=== PATIENT | male | born 2005 | race Caucasian/White ===

== ENCOUNTER 2025-05-17 04:35 | Emergency (ER) | payer BC, SELFPAY ==
[2025-05-17 06:20] LABS: #Basophils Less than 0.03 10x3/uL (0.0-0.2); #Eosinophils 0.07 10x3/uL (0.0-0.7); #Monocytes 1.81 10x3/uL (0.11-0.59); #Neutrophils 9.21 10x3/uL (1.40-6.50); %Basophils 0.2 % (0.0-1.0); %Eosinophils 0.6 % (0.0-10.0); %Lymphocytes 10.2 % (28.0-48.0); %Monocytes 14.6 % (0.0-4.0); %Neutrophils 74.1 % (31.0-61.0); Hematocrit 38.8 % (42.0-52.0); Hemoglobin 12.8 g/dL (14.0-18.0); Mean Corpuscular Hemoglobin 29.1 pg (25.0-35.0); Mean Corpuscular Volume 88.2 fL (78.0-98.0); Platelet Count 153 10x3/uL (130-400); Red Blood Cell (RBC) Count 4.40 mill/uL (4.00-5.20); White Blood Cell (WBC) Count 12.41 10x3/uL (4.8-10.8)
[2025-05-17 06:31] LABS: ALT (SGPT) 87 U/L (Less than 45); AST (SGOT) 39 U/L (11-34); Albumin 3.4 g/dL (3.1-4.5); Alkaline Phosphatase 54 U/L (50-130); Anion Gap 14 mmol/L (10-20); BUN (Urea Nitrogen) 10 mg/dL (8.4-21.0); Bilirubin, Total 0.2 mg/dL (0.3-1.2); Calc. Creatinine Clearance 0 mL/min (70-130); Calcium 8.8 mg/dL (7.8-10.44); Carbon Dioxide 24 mmol/L (22-29); Chloride 103 mmol/L (98-107); Globulin 3.7 g/dL (2.4-3.5); Glucose 97 mg/dL (70-105); Potassium 3.8 mmol/L (3.5-5.1); Sodium 137 mmol/L (136-145)
== END 2025-05-17 07:20 | disposition home or self-care (01) ==
LOC: ERS 04:35
DX: R50.9 Fever, unspecified (principal); R05.9 Cough, unspecified; R07.0 Pain in throat; R11.2 Nausea with vomiting, unspecified; R10.9 Unspecified abdominal pain
CPT/HCPCS: 71045; 80053; 85025; 87428; 93005